=== PATIENT | female | born 1980 | race Two or more races ===

== ENCOUNTER 2017-12-15 08:28 | Emergency (ER) | payer MEDICAID, OTHER ==
[~2017-12-15] VITALS: Ht 170.2 cm; Wt 61.2 kg
[2017-12-15] MEDS ORDERED: TETANUS, DIPHTHERIA, PERTUSSIS VAC/PF 0.5ML (>7YR OLD) IM ONE (09:15)
[2017-12-15] MEDS ORDERED: CHLORHEXIDINE GLUCONATE 0.12% MOUTHWASH UDC SSP SCH (09:15)
[2017-12-15] MEDS ORDERED: LIDOCAINE HCL/PF 1% 10 MG/ML 5ML VIAL IJ ONE (09:15)
[2017-12-15] MEDS ORDERED: BACITRACIN ZINC OINT UDPKT TOP ONE (09:15)
[2017-12-15] MEDS ORDERED: HYDROCODONE/ACETAMINOPHEN 5/325MG TABLET PO ONE (09:30)
[2017-12-15] MEDS ORDERED: KETOROLAC 30MG/ML VIAL IM ONE (12:15)
[2017-12-15 12:25] VITALS: BP 119/67
== END 2017-12-15 12:34 | disposition home or self-care (01) ==
LOC: ER 08:28
DX: S01.511A Laceration without foreign body of lip, initial encounter (principal); S01.81XA Laceration without foreign body of other part of head, initial encounter; S10.93XA Contusion of unspecified part of neck, initial encounter; S80.01XA Contusion of right knee, initial encounter; S20.219A Contusion of unspecified front wall of thorax, initial encounter; Z88.1 Allergy status to other antibiotic agents; Z88.8 Allergy status to other drugs, medicaments and biological substances; V49.88XA Car occupant (driver) (passenger) injured in other specified transport accidents, initial encounter; Y93.89 Activity, other specified; Y92.89 Other specified places as the place of occurrence of the external cause; Y99.8 Other external cause status
CPT/HCPCS: 12013; 71045; 73562; 81025; 90471; 90715; 96372; 99284; J1885; J3490

== ENCOUNTER 2017-12-18 13:45 | Emergency (ER) | payer OTHER ==
[~2017-12-18] VITALS: Ht 160 cm; Wt 68.5 kg
[2017-12-18 14:03] VITALS: BP 117/54
[2017-12-18] MEDS ORDERED: HYDR-4001 PO (14:03)
== END 2017-12-18 15:14 | disposition home or self-care (01) ==
LOC: ER 14:23
DX: S01.81XD Laceration without foreign body of other part of head, subsequent encounter (principal); X58.XXXD Exposure to other specified factors, subsequent encounter; Z90.49 Acquired absence of other specified parts of digestive tract; Z98.890 Other specified postprocedural states; Z88.8 Allergy status to other drugs, medicaments and biological substances
CPT/HCPCS: 99281

== ENCOUNTER 2017-12-23 16:25 | Emergency (ER) | payer OTHER ==
[~2017-12-23] VITALS: Ht 160 cm; Wt 68.0 kg
[~2017-12-23 16:25] MED LIST: HYDR-4001 PO
[2017-12-23 16:49] VITALS: BP 104/62
== END 2017-12-23 19:16 | disposition home or self-care (01) ==
LOC: ER 16:25
DX: Z48.02 Encounter for removal of sutures (principal); Z90.49 Acquired absence of other specified parts of digestive tract; Z88.3 Allergy status to other anti-infective agents; Z88.8 Allergy status to other drugs, medicaments and biological substances
CPT/HCPCS: 99281